=== PATIENT | male | born 1965 | race Caucasian/White ===

== ENCOUNTER 2019-12-06 13:59 | Observation (INO) ==
[2019-12-06] MEDS ORDERED: 0.9 % Sodium Chloride 1,000 ML IVC STA (14:54)
[2019-12-06 15:26] LABS: Basophils % 0.4 %; Hemoglobin 9.6 g/dL (12.9-16.9); Mean Corpuscular Volume 96.4 fL (83.0-100.0)
[2019-12-06 15:36] LABS: Eosinophils % 0.2 %; Hematocrit 29.4 % (37.5-50.1); Immature Granulocytes % 1.8 % (0-4); Lymphocytes # 0.5 K/mcL (0.6-4.6); Lymphocytes % 10.6 %; Mean Corpuscular HGB Conc 32.7 g/dL (31.6-35.5); Mean Corpuscular Hemoglobin 31.5 pg (28.0-33.3); Mean Platelet Volume 10.2 fL (9.4-12.4); Monocytes # 0.8 K/mcL (0.0-1.3); Monocytes % 15.3 %; Neutrophils # 3.6 K/mcL (1.6-8.9); Platelet Count 154 K/mcL (140-400); Red Blood Count 3.05 M/mcL (4.19-5.50); Red Cell Distribution Width 15.3 % (11.5-14.5); Segmented Neutrophils % 71.7 %
[2019-12-06 15:40] LABS: Albumin 3.5 g/dL (3.5-5.7); Albumin/Globulin Ratio 1.3 (1.1-2.2); Bilirubin,Direct 0.1 mg/dL (0.0-0.2); Bilirubin,Indirect 0.3 mg/dL (0.0-1.0); Bilirubin,Total 0.4 mg/dL (0.3-1.0); Calcium 8.5 mg/dL (8.6-10.3); Globulin 2.8 g/dL (2.4-3.5); Potassium 4.7 mEq/L (3.5-5.1); Total Protein 6.3 g/dL (6.4-8.9)
[2019-12-06] MEDS ORDERED: Ondansetron 4 MG/2 ML VIAL IVP PRN (16:50)
[2019-12-06] MEDS ORDERED: Naloxone 0.4 MG/ML INJ IVP PRN (16:50)
[2019-12-06 17:00] LABS: Uric Acid 11.8 mg/dL (2.3-7.6)
[2019-12-06] MEDS ORDERED: 0.9 % Sodium Chloride 1,000 ML IVC SCH (17:00)
[2019-12-06] MEDS ORDERED: Ipratropium/Albuterol Neb 3 ML IH PRN (17:14)
[2019-12-06 17:32] LABS: Phosphorous 6.3 mg/dL (2.7-4.5)
[2019-12-06] MEDS: 0.9 % Sodium Chloride 1,000 ML IVC SCH (19:45)
[2019-12-06 22:48] LABS: Bilirubin,Urine Negative (Negative); Blood,Urine Negative (Negative); Clarity,Urine Clear (Clear); Color,Urine Yellow (Yellow); Glucose,Urine (UA) 100 mg/dL (Normal); Ketones,Urine Negative (Negative); Leukocyte Esterase,Urine Negative (Negative); Nitrite,Urine Negative (Negative); Protein,Urine Negative (Neg-Trace); Urobilinogen,Urine Normal (Normal)
[2019-12-07] MEDS: 0.9 % Sodium Chloride 1,000 ML IVC SCH ×4 (04:49→20:43)
[2019-12-07] MEDS: ALPRAZolam 1 MG TABLET PO SCH ×2 (09:17→20:44)
[2019-12-07 09:20] LABS: Hemoglobin 9.7 g/dL (12.9-16.9); Mean Corpuscular HGB Conc 32.3 g/dL (31.6-35.5); Mean Corpuscular Volume 95.8 fL (83.0-100.0); Mean Platelet Volume 10.4 fL (9.4-12.4); Platelet Count 165 K/mcL (140-400); Red Blood Count 3.13 M/mcL (4.19-5.50); Red Cell Distribution Width 15.5 % (11.5-14.5); White Blood Count 4.3 K/mcL (4.3-11.1)
[2019-12-07 09:31] LABS: Phosphorous 2.7 mg/dL (2.7-4.5); Uric Acid 7.6 mg/dL (2.3-7.6)
[2019-12-07 09:32] LABS: BUN/Creatinine Ratio 23 (6-26); Blood Urea Nitrogen 31 mg/dL (6-20); Calcium 8.6 mg/dL (8.6-10.3); Carbon Dioxide 22 mEq/L (23-29); Chloride 109 mEq/L (98-107); Glucose 105 mg/dL (70-105); Magnesium 1.9 mg/dL (1.6-2.6); Osmolality,Calculated 291 (280-300); Potassium 5.2 mEq/L (3.5-5.1); Sodium 137 mEq/L (136-145); eGFR For African Americans > 60 (> 60); eGFR For Non-African Americans 55 (> 60)
[2019-12-07] MEDS ORDERED: Divalproex (24 HR) 500 MG TABLET PO SCH (21:00)
[2019-12-08] MEDS: 0.9 % Sodium Chloride 1,000 ML IVC SCH (04:38)
[2019-12-08 07:09] VITALS: BP 118/75
[2019-12-08] MEDS ORDERED: Lithium Carbonate 300 MG CAPSULE PO SCH (07:15)
[2019-12-08] MEDS ORDERED: *HR* OxyCODONE/APAP 5/325 TABLET PO PRN (07:15)
[2019-12-08] MEDS: ALPRAZolam 1 MG TABLET PO SCH (07:23)
[2019-12-08] MEDS ORDERED: BuPROPion XL (24 HR) 150 MG TABLET PO SCH (09:00)
[2019-12-08 14:15] LABS: BUN/Creatinine Ratio 13 (6-26); Blood Urea Nitrogen 13 mg/dL (6-20); Carbon Dioxide 24 mEq/L (23-29); Chloride 108 mEq/L (98-107); Glucose 104 mg/dL (70-105); Osmolality,Calculated 284 (280-300); Sodium 137 mEq/L (136-145); eGFR For African Americans > 60 (> 60); eGFR For Non-African Americans > 60 (> 60)
[2019-12-09 01:47] LABS: Valproate Free 8 ug/mL (7-23); Valproate Total 34 ug/mL (50-125)
[2019-12-09 08:10] LABS: Valproate % Free 24 % (5-18)
== END 2019-12-08 12:00 | disposition home or self-care (01) ==
LOC: 2ANU 13:59 → EMEROOARM 13:59 → SUATTDRO 20:35 → 2ANU 21:15
PROVIDERS: ADMIT Family Medicine; ATTEND Internal Medicine